=== PATIENT | male | born 1955 | race African-American/Black ===

== ENCOUNTER 2018-05-09 05:13 | Inpatient (IN) | payer MEDICAID ==
[~2018-05-09] VITALS: Ht 180.3 cm; Wt 83.0 kg
[~2018-05-09 05:13] MED LIST: ALBU90AE IH; ALLO300T2 PO; GABA-531 PO; HYDR-4001 PO; HYDR12.529 PO; PANT20TA3 PO
[2018-05-09] MEDS: LACTATED RINGERS 1,000 ML IV SCH ×3 (06:16→07:11)
[2018-05-09] MEDS ORDERED: CEFOXITIN SODIUM 2 G in DEXT 5% WATER 100 ML IV ONE (06:45)
[2018-05-09] MEDS ORDERED: LIDOCAINE HCL 1% 20ML VIAL (Pyxis) INJ ONE (07:06)
[2018-05-09] MEDS ORDERED: BUPIVACAINE HCL/PF 0.5% (5MG/ML) 10ML ONE (07:07)
[2018-05-09] MEDS ORDERED: NORMAL SALINE 0.9% 10 ML SYR ONE (07:07)
[2018-05-09] MEDS ORDERED: BACITRACIN 50,000 UNITS/VIAL ONE (07:07)
[2018-05-09] MEDS ORDERED: SKIN ADHESIVE 0.7 GM EA TOP ONE (07:08)
[2018-05-09] MEDS ORDERED: FENTANYL CITRATE/PF 50MCG/ML 2ML VIAL ONE ×2 (07:53→08:26)
[2018-05-09] MEDS ORDERED: NEOSTIGMINE METHYLSULFATE 1MG/ML 10 ML VIAL ONE (07:54)
[2018-05-09] MEDS ORDERED: PROPOFOL 200MG/20ML VIAL IV ONE (07:54)
[2018-05-09] MEDS ORDERED: ROCURONIUM BROMIDE 10MG/ML VIAL 5ML IV ONE (07:54)
[2018-05-09] MEDS ORDERED: GLYCOPYRROLATE 0.2 MG/ML 2ML VIAL ONE (07:54)
[2018-05-09] MEDS ORDERED: PHENYLEPHRINE HCL 10 MG/ML 1ML (IV VIAL) IV ONE (07:54)
[2018-05-09] MEDS ORDERED: SUCCINYLCHOLINE CHLORIDE 200MG/10ML IV ONE (07:54)
[2018-05-09] MEDS ORDERED: ONDANSETRON HCL 4MG/2ML INJ ONE (07:54)
[2018-05-09] MEDS ORDERED: SODIUM CHLORIDE 0.9% 10ML VIAL ONE (07:54)
[2018-05-09] MEDS ORDERED: MIDAZOLAM HCL 2 MG/2 ML VIAL ONE (07:54)
[2018-05-09] MEDS ORDERED: METOCLOPRAMIDE HCL 10MG/2ML VIAL ONE (07:54)
[2018-05-09] MEDS ORDERED: EPHEDRINE SULFATE 50MG/ML VIAL ONE (07:54)
[2018-05-09] MEDS ORDERED: SODIUM CHLORIDE 0.9% 1,000 ML IV ONE (08:38)
[2018-05-09] MEDS ORDERED: HYDRALAZINE 20MG/ML VIAL ONE (08:42)
[2018-05-09] MEDS ORDERED: MEPERIDINE HCL/PF 25MG/ML CPJ IV PRN (08:45)
[2018-05-09] MEDS ORDERED: ONDANSETRON HCL 4MG/2ML INJ IV PRN ×2 (08:45→09:30)
[2018-05-09] MEDS ORDERED: MORPHINE SULFATE 4 MG/ML CPJ (NOT FOR IM USE) IV PRN (08:45)
[2018-05-09] MEDS ORDERED: HYDROMORPHONE HCL/PF 2MG/ML CPJ IV PRN (08:45)
[2018-05-09] MEDS ORDERED: HYDROMORPHONE HCL/PF 2MG/ML (OR) ONE (08:54)
[2018-05-09] MEDS ORDERED: ALBUTEROL SULFATE IH PRN (09:30)
[2018-05-09 12:00] VITALS: BP 150/90
[2018-05-09] MEDS: KETOROLAC 30MG/ML VIAL IV SCH ×2 (12:00→17:11)
[2018-05-09] MEDS ORDERED: SODIUM CHLORIDE 0.45% 1,000 ML IV SCH (12:00)
[2018-05-09] MEDS ORDERED: ALBUTEROL (0.083%) 2.5MG/3ML NEB HHN PRN (12:30)
[2018-05-09] MEDS: HYDROMORPHONE HCL/PF 2MG/ML CPJ IV PRN ×2 (12:58→21:36)
[2018-05-09 13:16] VITALS: BP 150/90
[2018-05-09] MEDS: HYDROCHLOROTHIAZIDE 12.5MG CAPSULE PO SCH (14:00)
[2018-05-09 16:00] VITALS: BP 131/73
[2018-05-09] MEDS ORDERED: MEDICATION NOT ON FORMULARY EA (Gabapentin 300 MG) PO SCH (17:00)
[2018-05-09] MEDS: GABAPENTIN 300MG CAPSULE PO SCH (17:05)
[2018-05-09 20:00] VITALS: BP 123/68
[2018-05-10] VITALS: BP 115/75
[2018-05-10] MEDS: KETOROLAC 30MG/ML VIAL IV SCH ×2 (00:21→06:06)
[2018-05-10 04:00] VITALS: BP 133/81
[2018-05-10] MEDS ORDERED: PANTOPRAZOLE 40MG DR TABLET PO SCH (07:20)
[2018-05-10 07:54] VITALS: BP 142/79
[2018-05-10] MEDS ORDERED: MEDICATION NOT ON FORMULARY EA (Pantoprazole Sodium 20 MG) PO SCH (09:00)
[2018-05-10] MEDS ORDERED: ALLOPURINOL 300 MG TABLET PO SCH (09:00)
[2018-05-10] MEDS ORDERED: MEDICATION NOT ON FORMULARY EA (Allopurinol 300 MG) PO SCH (09:00)
[2018-05-10] MEDS: GABAPENTIN 300MG CAPSULE PO SCH (09:32)
[2018-05-10] MEDS: HYDROCHLOROTHIAZIDE 12.5MG CAPSULE PO SCH (09:32)
[2018-05-10 09:38] VITALS: BP 142/77
== END 2018-05-10 10:42 | disposition home or self-care (01) | DRG 263 ==
LOC: OR 05:13 → 6EST 05:14
PROVIDERS: ADMIT Specialist; ATTEND Specialist
PROC: 0FT44ZZ Resection of Gallbladder, Percutaneous Endoscopic Approach (ICD-10-PCS; principal; 2018-05-09)
DX: K80.20 Calculus of gallbladder without cholecystitis without obstruction (principal); B19.20 Unspecified viral hepatitis C without hepatic coma; I10 Essential (primary) hypertension; K21.9 Gastro-esophageal reflux disease without esophagitis; M10.9 Gout, unspecified; Z79.899 Other long term (current) drug therapy
CPT/HCPCS: 88304; 93005; J0330; J0360; J0694; J1170; J1885; J2250; J2370; J2405; J2704; J2710; J2765; J3010; J3490; J7060